=== PATIENT | male | born 1990 | race Two or more races ===

== ENCOUNTER 2018-04-03 14:14 | Emergency (ER) | payer OTHER ==
[~2018-04-03] VITALS: Ht 182.9 cm; Wt 113.4 kg
== END 2018-04-03 18:21 | disposition home or self-care (01) ==
LOC: ER 14:14
DX: B34.9 Viral infection, unspecified (principal); J45.998 Other asthma

== ENCOUNTER 2018-06-11 16:46 | Emergency (ER) | payer OTHER ==
[~2018-06-11] VITALS: Ht 188 cm; Wt 108.9 kg
[2018-06-11] MEDS ORDERED: TESSALON PERLE100 MG PO (20:42)
[2018-06-11] MEDS ORDERED: TUSSIONEX PENN115 ML PO (20:42)
== END 2018-06-11 21:08 | disposition home or self-care (01) ==
LOC: ER 16:46
DX: R05 Cough (principal); M54.89 Other dorsalgia

== ENCOUNTER 2019-01-26 13:18 | Emergency (ER) | payer OTHER ==
[~2019-01-26] VITALS: Ht 180.3 cm; Wt 111.1 kg
[~2019-01-26 13:18] MED LIST: TESSALON PERLE100 MG PO; TUSSIONEX PENN115 ML PO
[2019-01-26] MEDS ORDERED: SYMBICORT 16010.2 GM IH (17:32)
[2019-01-26] MEDS ORDERED: MUCINEX DM ER1 EAC1 PO (17:32)
[2019-01-26] MEDS ORDERED: IBUPROFEN600 MG PO (17:32)
[2019-01-26] MEDS ORDERED: PROMETH-CODEIN 65 ML PO (17:32)
[2019-01-26] MEDS ORDERED: BUDESONIDE0.5 MG/2 M IH (17:32)
[2019-01-26] MEDS ORDERED: IPRAT-ALBUT 0.5-3 ML IH (17:32)
== END 2019-01-26 17:41 | disposition home or self-care (01) ==
LOC: ER 13:18
DX: J06.9 Acute upper respiratory infection, unspecified (principal); B34.9 Viral infection, unspecified